=== PATIENT | male | born 1945 | race African-American/Black ===

== ENCOUNTER 2017-05-27 00:44 | Inpatient (IN) | payer MEDICARE, MEDICAID ==
[2017-05-27 03:34] VITALS: BMI 32.1
[2017-05-27] MEDS ORDERED: Dextrose 50% Abboject 50 ML SYRINGE SLOW IVP PRN (05:33)
[2017-05-27] MEDS ORDERED: Mag-Al 1200 mg/1200 mg/30 ML UDCUP PO PRN (05:33)
[2017-05-27] MEDS ORDERED: HYDROcodone/Acetaminophen 5/325 mg Tablet PO PRN ×2 (05:33)
[2017-05-27] MEDS ORDERED: hydrALAZINE 20 MG/ML VIAL SLOW IVP PRN (05:33)
[2017-05-27] MEDS ORDERED: Dextrose 5% in Water 1,000 ML IV PRN (05:33)
[2017-05-27] MEDS ORDERED: Acetaminophen 325 MG TAB PO PRN ×2 (05:33)
[2017-05-27] MEDS ORDERED: HumaLOG 300 UNITS/3 ML VIAL SC PRN ×2 (05:33)
[2017-05-27] MEDS ORDERED: Milk Of Magnesia 30 ML UDCUP PO PRN (05:33)
--- NOTE | 2017-05-27 06:02 | HP ---
PRIMARY CARE PHYSICIAN: The patient does not remember his primary care physician. CHIEF COMPLAINT: Blister on the left foot. HISTORY OF PRESENT ILLNESS: Mr. Jackson is a pleasant 71-year-old gentleman that has a history of di abetes mellitus as well as hypertension and elevated cholesterol. He was in his usual state of healt h until 2 nights ago, he says that he was taking a shower and noticed that he had a blister on his fo ot. He says there was no pain associated with it and he says that the following day, it seems like t he blister was getting larger and then he tried to put on his shoes and then the blister burst. Sinc e he is diabetic, he was concerned and came to the ER for evaluation. It was noted that he had a lar ge bullous lesion on the dorsum of the foot; however, it did not appear to have any purulent drainage or to be infected. He has been admitted for further evaluation and consultation with wound care. T he patient says that he denies any trauma to the foot and he denies any pain to that area and he says that his sensation in his foot is fairly good and he denies any burning of the foot. He also denies any fevers or chills and the drainage was just clear. REVIEW OF SYSTEMS: Constitutional: There have been no fevers, no chills, no night sweats, no weight loss. HEENT: No headaches, no dizziness, no visual changes, no sore throat, rhinorrhea, neck pain or adenopathy. Pulmonary: No hemoptysis, no cough, no wheezing. Cardiovascular: He denies any chest pain, no shortness of breath, no PND, no orthopnea. Gastrointestinal: No abdominal pain, no nausea, no vomiting, no change in bowels. Genitourinary: No urinary frequency, hematuria, no hesitancy. Neurologic: He has a history of seiz ures, but no recent seizures, no focal weakness. Skin and Integument: As the history of present ill ness. Endocrine: No polyuria, no polydipsia. No heat or cold intolerance. PAST MEDICAL HISTORY: Significant for diabetes mellitus type 2, hyperlipidemia, elevated cholesterol , hypertension, coronary artery disease, and seizure disorder. PAST SURGICAL HISTORY: He has had hernia repair and pelvic surgery. ALLERGIES: No known drug allergies. SOCIAL HISTORY: He is a nonsmoker. He occasionally drinks. He is single, has two children, a son a nd a daughter and lives with his daughter. CODE STATUS: FULL CODE. FAMILY HISTORY: Unknown. MEDICATIONS: Include Keppra 500 mg twice a day, potassium chloride 8 mEq daily, amlodipine 10 mg cici ly, carvedilol 3.125 mg twice a day, Lipitor 40 mg at bedtime, lisinopril 10 mg twice a day, Lasix 40 mg daily, hydrochlorothiazide 25 mg daily, aspirin 81 mg a day. PHYSICAL EXAMINATION: GENERAL: He is alert and oriented. He appears to be in no acute distress. VITAL SIGNS: Blood pressure was 161/73, heart rate 79, respiratory rate is 16, temperature is 98.4. HEENT: Pupils are equal, round, and reactive. Extraocular muscles are intact. Sclerae are anicteri c. Throat no erythema, no exudates. NECK: No adenopathy, no bruits. LUNGS: Clear to auscultation. There is no wheezing, no rales. CARDIOVASCULAR: He has a normal S1, S2. I do not appreciate an S3 or S4. No murmurs, clicks or rub s. ABDOMEN: Soft, it is nontender, nondistended. Positive for bowel sounds. No rebound, no guarding. EXTREMITIES: He has got some chronic venous stasis changes on both of his legs on the calf. He has got some mycotic nails. He has a bullous lesion on the dorsum of the left foot and it is also encomp assing part of the fifth and fourth toes. There is no erythema. There is no induration. There is n o odor. His pulses are palpable, but seems slightly diminished. He has got some callus formation on the toes as well as the foot as well. Neurological: The exam is nonfocal. SIGNIFICANT LABORATORY DATA AND X-RAY FINDINGS: White blood cell count was 6.1, hemoglobin 10.2, hem atocrit 33.8, platelet count was 283. Sodium 142, potassium 4.1, chloride is 106, CO2 was 25, BUN of 35, creatinine of 2.83, glucose is 106. He had an x-ray of the foot that just showed some degenerat brianne changes. ASSESSMENT AND PLAN: This is a pleasant 71-year-old gentleman that has a bullous lesion on the foot, unclear as to how this injury came about. He does admit that he has been doing quite a bit of walki ng and it is possible that his shoes are not fitting properly, which could put him at risk for this t ype of lesion. He says his sensation is fairly intact, therefore, burn is unlikely that this would h ave gone unnoticed and it is possible that it could be vascular; however, his pulses were palpable; h owever, they were diminished. It is unlikely that it represents a primary dermatological problem sin ce that time just one localized area on the foot. He will be evaluated by Wound Care. We will hold off on antibiotics at this time as the area does not appear to be infected. We will get an ultrasoun d of his arterial circulation to help assess his vascular status. He may require home health at the time of discharge to help with wound care. 1. Diabetes mellitus. We will need to determine what he takes for diabetes control and place him on a sliding scale insulin. 2. Hypertension. Again, we will restart his home medications and place him on p.r.n. medications as needed. 3. The patient will be placed on deep venous thrombosis and gastrointestinal prophylaxis. 4. Seizures. He has had no recent seizures. We will continue Keppra and monitor.
[2017-05-27] MEDS: Potassium Chloride 8 MEQ TAB PO SCH (10:26)
[2017-05-27] MEDS: Furosemide 40 MG TAB PO SCH (10:26)
[2017-05-27] MEDS: levETIRAcetam 500 MG TAB PO SCH ×2 (10:27→20:51)
[2017-05-27] MEDS: Hydrochlorothiazide 25 MG TAB PO SCH (10:27)
[2017-05-27] MEDS: Amlodipine 10 MG TAB PO SCH (10:27)
[2017-05-27] MEDS: Famotidine 20 MG TAB PO SCH ×2 (10:27→20:51)
[2017-05-27] MEDS: Aspirin 81 mg Enteric Coated Tablet PO SCH (10:27)
[2017-05-27] MEDS: Lisinopril 5 MG TAB PO SCH ×2 (10:27→20:50)
[2017-05-27] MEDS: Carvedilol 3.125 MG TAB PO SCH ×2 (10:27→20:51)
[2017-05-27] MEDS: Heparin 5,000 UNITS/ML VIAL SC SCH ×3 (10:28→20:51)
--- NOTE | 2017-05-27 15:23 | PDOC.PN ---
- Subjective Encounter Start Date: 05/27/17 Encounter Start Time: 15:00 Subjective: f/u for LLE bullous formation on the dorsum of the L foot. WCT evaluated -: with local dressing applied. Some burning pain when touched. No direct -: trauma, burn or prior similar event. - Objective Resuscitation Status: Resuscitation Status FULL:Full Resuscitation MAR Reviewed: Yes Vital Signs & Weight: Vital Signs (12 hours) Temp Pulse Resp BP BP Pulse Ox 05/27/17 10:27 66 05/27/17 08:06 161/78 H 05/27/17 08:00 98.5 F 59 L 18 154/83 H 99 05/27/17 04:00 98.6 F 79 18 130/68 100 Weight Admit Weight 217 lb 12.8 oz Weight 217 lb 12.8 oz I&O: 05/26/17 05/27/17 05/28/17 06:59 06:59 06:59 Intake Total 240 Balance 240 Additional Labs: Accuchecks 05/27/17 05/27/17 11:45 05:49 POC Glucose 92 96 Laboratory Tests 05/26/17 05/26/17 20:51 20:51 WBC 6.1 Hgb 10.2 L Hct 33.8 L Plt Count 283 BUN 35 H Creatinine 2.83 H Radiology Reviewed by me: Yes (Arterial sono -pending; L foot x-ray - no foreign body, bone destruction) Phys Exam - Physical Examination Constitutional: NAD HEENT: PERRLA, oral pharynx no lesions Neck: no JVD, supple Respiratory: no wheezing, clear to auscultation bilateral Cardiovascular: RRR Gastrointestinal: soft, non-tender, no distention, positive bowel sounds LLE with edema, L foot with 4.5cm bullous formation on dorsum, + 3-5th toe edema Musculoskeletal: pulses present, edema present Neurological: moves all 4 limbs Psychiatric: A&O x 3 Skin: normal turgor, cap refill <2 seconds Dx/Plan (1) Bullous dermatosis Code(s): L13.9 - BULLOUS DISORDER, UNSPECIFIED Status: Acute Comment: L foot involvement, start IV abx, local WCT (2) DM II (diabetes mellitus, type II), controlled Code(s): E11.9 - TYPE 2 DIABETES MELLITUS WITHOUT COMPLICATIONS Status: Chronic Comment: suspected, clarify home regimen, ISS (3) Peripheral neuropathy Code(s): G62.9 - POLYNEUROPATHY, UNSPECIFIED Status: Suspected Comment: Supportive, Local WCT (4) HTN (hypertension) Code(s): I10 - ESSENTIAL (PRIMARY) HYPERTENSION Status: Chronic Qualifiers: Hypertension type: essential hypertension Qualified Code(s): I10 - Essential (primary) hypertension Comment: Continue Amlodipine, Coreg and HCTZ (5) CKD (chronic kidney disease), stage IV Code(s): N18.4 - CHRONIC KIDNEY DISEASE, STAGE 4 (SEVERE) Status: Chronic Comment: Follow trend, avoid nephrotoxic meds and contrast media - Plan continue antibiotics, PT/OT, social director, out of bed/ambulate Stable overall -: Start Rocephin and Vancomycin when IV established -: WCT for local care -: Review arterial sono of LLE -: Resume home BP regimen * Am lab: BMP, CBC
[2017-05-27] MEDS: Atorvastatin Calcium 40 MG TAB PO SCH (20:50)
[2017-05-28 05:15] LABS: #Basophils 0.1 thou/uL (0.0-0.2); #Eosinphils 0.1 thou/uL (0.0-0.7); #Lymphocytes 1.5 thou/uL (1.20-3.40); #Monocytes 0.3 thou/uL (0.11-0.59); #Neutrophils 2.8 thou/uL (1.40-6.50); %Eosinophils 2.9 % (0.0-10.0); %Lymphocytes 31.2 % (21.0-51.0); %Monocytes 6.9 % (0.0-10.0); %Neutrophils 57.9 % (42.0-75.0); Mean Corpuscular HGB CONC 30.5 g/dL (32.0-36.0); Mean Corpuscular Hemoglobin 23.8 pg (27.0-31.0); Mean Corpuscular Volume 78.2 fl (80.0-94.0); Mean Platelet Volume 7.9 fL (7.4-10.4); Platelet Count 273 thou/uL (130-400); White Blood Cell (WBC) Count 4.9 thou/uL (4.8-10.8)
[2017-05-28 05:28] LABS: Anion Gap 11 mmol/L (10-20); BUN (Urea Nitrogen) 31 mg/dL (8.4-25.7); Calc. Creatinine Clearance 41 mL/min (70-130); Calcium 8.9 mg/dL (7.8-10.44); Carbon Dioxide 26 mmol/L (23-31); Chloride 105 mmol/L (98-107); Estimated GFR-MDRD 35; Glucose 84 mg/dL (83-110); Potassium 3.6 mmol/L (3.5-5.1); Sodium 138 mmol/L (136-145)
--- NOTE | 2017-05-28 07:19 | CON ---
DATE OF CONSULTATION: 05/27/2017 CONSULTING PHYSICIAN: Dr. Marion. REASON FOR CONSULTATION: Chronic kidney disease. REASON FOR ADMISSION: Left-foot blister. HISTORY OF PRESENT ILLNESS: This is a 71-year-old -[place] male with history of diabetes, hy pertension, hyperlipidemia, coronary artery disease, who came to the hospital with blister. Patient does have chronic kidney disease and family request him to evaluation. He does follow with Dr. Hall. No fever or chills. No chest pain reported to me. No shortness of breath. PAST MEDICAL HISTORY: Positive for type 2 diabetes, hypertension, hyperlipidemia, coronary artery di sease. PAST SURGICAL HISTORY: Hernia surgery and pelvic surgery. ALLERGIES: No known drug allergies. HOME MEDICATIONS: Potassium, lisinopril, hydrochlorothiazide, Lasix, carvedilol, Lipitor, . ALLERGIES: No known drug allergies. SOCIAL HISTORY: No smoking, alcohol, or illicit drug use. FAMILY HISTORY: No history of kidney disease. REVIEW OF SYSTEMS: The following complete review of systems was negative, unless otherwise mentioned in the HPI or below: Constitutional: Weight loss or gain, ability to conduct usual activities. Sk in: Rash, itching. Eyes: Double vision, pain. ENT/Mouth: Nose bleeding, neck stiffness, pain, te nderness. Cardiovascular: Palpitations, dyspnea on exertion, orthopnea. Respiratory: Shortness of breath, wheezing, cough, hemoptysis, fever, or night sweats. Gastrointestinal: Poor appetite, abdo yoselin pain, heartburn, nausea, vomiting, constipation, or diarrhea. Genitourinary: Urgency, frequen cy, dysuria, nocturia. Musculoskeletal: Pain, swelling. Neurologic/Psychiatric: Anxiety, depressi on. Allergy/Immunologic: Skin rash, bleeding tendency. PHYSICAL EXAMINATION: GENERAL: This is a well-built male, no apparent distress. VITAL SIGNS: Temperature 98.6, pulse 56, respiratory rate 20, blood pressure 125/69. HEENT: Atraumatic, normocephalic. Oral mucosa is moist. NECK: Supple, no masses. CARDIOVASCULAR: S1, S2. Rate and rhythm regular. No murmurs or gallops. RESPIRATORY: Clear. ABDOMEN: Soft. MUSCULOSKELETAL: 1+ edema. DERMATOLOGIC: No skin rashes. NEUROLOGIC: Alert and awake. PSYCHIATRIC: Mood and affect normal. LABORATORY DATA: Potassium 4.1, BUN is 35, creatinine is 2.9. ASSESSMENT AND PLAN: 1. Acute kidney injury on chronic kidney disease, stage 4. Renal function is stable, close to his b aseline. 2. Hypertension, stable. 3. Edema, controlled. 4. Anemia. We will monitor renal function and avoid nephrotoxins.
[2017-05-28] MEDS: Lisinopril 5 MG TAB PO SCH ×2 (08:14→21:04)
[2017-05-28] MEDS: Famotidine 20 MG TAB PO SCH ×2 (08:15→21:03)
[2017-05-28] MEDS: Furosemide 40 MG TAB PO SCH (08:15)
[2017-05-28] MEDS: Potassium Chloride 8 MEQ TAB PO SCH (08:15)
[2017-05-28] MEDS: Carvedilol 3.125 MG TAB PO SCH ×2 (08:15→21:03)
[2017-05-28] MEDS: Amlodipine 10 MG TAB PO SCH (08:15)
[2017-05-28] MEDS: Aspirin 81 mg Enteric Coated Tablet PO SCH (08:15)
[2017-05-28] MEDS: Hydrochlorothiazide 25 MG TAB PO SCH (08:16)
[2017-05-28] MEDS: Heparin 5,000 UNITS/ML VIAL SC SCH ×3 (08:16→21:04)
[2017-05-28] MEDS: levETIRAcetam 500 MG TAB PO SCH ×2 (08:16→21:04)
[2017-05-28] MEDS ORDERED: Prevnar 13-Val Conj/PF 0.5 ML SYRINGE IM ONE (09:00)
[2017-05-28] MEDS ORDERED: FLU VACC TS2017-18 (>65YR) 0.5 ML SYRINGE IM ONE (09:00)
--- NOTE | 2017-05-28 12:09 | PRG ---
DATE OF SERVICE: 05/28/2017 SUBJECTIVE: Patient was seen and examined at bedside and overnight events noted. Patient denies any shortness of breath or chest pain or palpitation. No history of nausea or vomiting or diarrhea or f ever or chills or cramps. OBJECTIVE: GENERAL: This is a well-built male in no apparent distress. VITAL SIGNS: Temperature 97.5, pulse 64, respiratory rate 18, blood pressure 104/60. HEENT: Atraumatic, normocephalic. Oral mucosa is moist. NECK: Supple. CARDIOVASCULAR: S1, S2 heard. Rate and rhythm regular. RESPIRATORY: Clear to auscultation. GASTROINTESTINAL: Abdomen is soft. MUSCULOSKELETAL: No tenderness. No edema. DERMATOLOGIC: No skin rash. NEUROLOGIC: Alert and awake and oriented x3. No focal neurologic deficits. Moving all the extremiti es. PSYCHIATRIC: Mood and affect normal. LABORATORY DATA: Potassium is 3.6, BUN is 31, creatinine is 2.2. ASSESSMENT AND PLAN: 1. Acute kidney injury on chronic kidney disease. Renal function is getting better. 2. Edema controlled. 3. Hypertension. 4. Anemia. Overall stable renal function. We will follow.
--- NOTE | 2017-05-28 12:12 | PDOC.PN ---
- Subjective Encounter Start Date: 05/28/17 Encounter Start Time: 12:00 Subjective: f/u for L foot bulla and edema and KRISTINA. Receiving local care per WCT. -: No IV established and no abx started. No c/o pain in L foot currently. - Objective Resuscitation Status: Resuscitation Status FULL:Full Resuscitation MAR Reviewed: Yes Vital Signs & Weight: Vital Signs (12 hours) Temp Pulse Resp BP BP Pulse Ox 05/28/17 08:14 64 133/75 05/28/17 08:00 97.5 F L 64 16 99 05/28/17 07:40 97.5 F L 66 16 104/60 99 Weight Admit Weight 217 lb 12.8 oz Weight 217 lb 12.8 oz I&O: 05/27/17 05/28/17 05/29/17 06:59 06:59 06:59 Intake Total 240 240 Balance 240 240 Result Diagrams: 05/28/17 04:54 05/28/17 04:54 Additional Labs: Accuchecks 05/28/17 05/28/17 05/27/17 11:21 06:11 20:12 POC Glucose 98 82 120 H 05/27/17 16:13 POC Glucose 125 H Laboratory Tests 05/26/17 05/26/17 20:51 20:51 WBC 6.1 Hgb 10.2 L Hct 33.8 L Plt Count 283 BUN 35 H Creatinine 2.83 H Phys Exam - Physical Examination Constitutional: NAD HEENT: PERRLA, oral pharynx no lesions Neck: no JVD, supple Respiratory: no wheezing, clear to auscultation bilateral Cardiovascular: RRR Gastrointestinal: soft, non-tender, no distention, positive bowel sounds L foot with dressing in place Musculoskeletal: pulses present, edema present Neurological: moves all 4 limbs Psychiatric: A&O x 3 Deviation from normal: dry skin on feet and lower legs Skin: normal turgor, cap refill <2 seconds Dx/Plan (1) Bullous dermatosis Code(s): L13.9 - BULLOUS DISORDER, UNSPECIFIED Status: Acute Comment: L foot involvement, start Augmentin 500mg BID, local WCT (2) DM II (diabetes mellitus, type II), controlled Code(s): E11.9 - TYPE 2 DIABETES MELLITUS WITHOUT COMPLICATIONS Status: Chronic Comment: suspected, clarify home regimen, ISS (3) Peripheral neuropathy Code(s): G62.9 - POLYNEUROPATHY, UNSPECIFIED Status: Suspected Comment: Supportive, Local WCT (4) HTN (hypertension) Code(s): I10 - ESSENTIAL (PRIMARY) HYPERTENSION Status: Chronic Qualifiers: Hypertension type: essential hypertension Qualified Code(s): I10 - Essential (primary) hypertension Comment: Continue Amlodipine, Coreg and HCTZ (5) CKD (chronic kidney disease), stage IV Code(s): N18.4 - CHRONIC KIDNEY DISEASE, STAGE 4 (SEVERE) Status: Chronic Comment: Follow trend, avoid nephrotoxic meds and contrast media - Plan PT/OT, social services designee, out of bed/ambulate Stable overall -: Start Augmentin 500mg po BID -: WCT for local care -: OOB/ambulate -: AM lab: BMP * Review arterial dopplers of LE's
[2017-05-28] MEDS ORDERED: Amoxicillin/Potassium Clav 500 MG TAB PO SCH (12:30)
[2017-05-28] MEDS: Amoxicillin/Potassium Clav 500 MG TAB PO SCH (21:02)
[2017-05-28] MEDS: Atorvastatin Calcium 40 MG TAB PO SCH (21:03)
[2017-05-29] MEDS: Lisinopril 5 MG TAB PO SCH ×2 (08:59→20:47)
[2017-05-29] MEDS: Aspirin 81 mg Enteric Coated Tablet PO SCH (09:00)
[2017-05-29] MEDS: Potassium Chloride 8 MEQ TAB PO SCH (09:00)
[2017-05-29] MEDS: Carvedilol 3.125 MG TAB PO SCH ×2 (09:00→20:47)
[2017-05-29] MEDS: Furosemide 40 MG TAB PO SCH (09:00)
[2017-05-29] MEDS: Amlodipine 10 MG TAB PO SCH (09:00)
[2017-05-29] MEDS: Famotidine 20 MG TAB PO SCH ×2 (09:00→20:45)
[2017-05-29] MEDS: Hydrochlorothiazide 25 MG TAB PO SCH (09:00)
[2017-05-29] MEDS: levETIRAcetam 500 MG TAB PO SCH ×2 (09:00→20:47)
[2017-05-29] MEDS: Heparin 5,000 UNITS/ML VIAL SC SCH ×3 (09:00→20:48)
[2017-05-29] MEDS: Amoxicillin/Potassium Clav 500 MG TAB PO SCH ×2 (09:01→20:45)
--- NOTE | 2017-05-29 14:41 | PDOC.PN ---
- Subjective Encounter Start Date: 05/29/17 Encounter Start Time: 14:30 Subjective: f/u L foot bullous formation and cellulitis tx with Augmentin and local -: wound care. - Objective Resuscitation Status: Resuscitation Status FULL:Full Resuscitation MAR Reviewed: Yes Vital Signs & Weight: Vital Signs (12 hours) Temp Pulse Resp BP Pulse Ox 05/29/17 08:00 98.4 F 60 16 99 05/29/17 07:18 98.4 F 60 16 136/65 99 05/29/17 05:00 98.2 F 60 16 130/83 99 Weight Admit Weight 217 lb 12.8 oz Weight 217 lb 12.8 oz I&O: 05/28/17 05/29/17 05/30/17 06:59 06:59 06:59 Intake Total 240 200 Output Total 250 Balance 240 -50 Result Diagrams: 05/28/17 04:54 05/28/17 04:54 Additional Labs: Accuchecks 05/29/17 05/29/17 05/28/17 11:11 06:03 21:01 POC Glucose 91 86 114 H 05/28/17 16:10 POC Glucose 98 Phys Exam - Physical Examination Constitutional: NAD HEENT: PERRLA, oral pharynx no lesions Neck: no JVD, supple Respiratory: no wheezing, clear to auscultation bilateral Cardiovascular: RRR Gastrointestinal: soft, non-tender, no distention, positive bowel sounds L foot edema with dressing in place Musculoskeletal: pulses present, edema present Neurological: normal sensation, moves all 4 limbs Psychiatric: A&O x 3 Skin: normal turgor, cap refill <2 seconds Dx/Plan (1) Bullous dermatosis Code(s): L13.9 - BULLOUS DISORDER, UNSPECIFIED Status: Acute Comment: L foot involvement, start Augmentin 500mg BID, local WCT (2) DM II (diabetes mellitus, type II), controlled Code(s): E11.9 - TYPE 2 DIABETES MELLITUS WITHOUT COMPLICATIONS Status: Chronic Comment: suspected, clarify home regimen, ISS (3) Peripheral neuropathy Code(s): G62.9 - POLYNEUROPATHY, UNSPECIFIED Status: Suspected Comment: Supportive, Local WCT (4) HTN (hypertension) Code(s): I10 - ESSENTIAL (PRIMARY) HYPERTENSION Status: Chronic Qualifiers: Hypertension type: essential hypertension Qualified Code(s): I10 - Essential (primary) hypertension Comment: Continue Amlodipine, Coreg and HCTZ (5) CKD (chronic kidney disease), stage IV Code(s): N18.4 - CHRONIC KIDNEY DISEASE, STAGE 4 (SEVERE) Status: Chronic Comment: Follow trend, avoid nephrotoxic meds and contrast media - Plan Continue Augmentin 500mg BID -: WCT for local care -: CM for HH options -: Update Td immunization prior to d/c -: AM lab: BMP * Likely home 05/30/17
[2017-05-29] MEDS: Atorvastatin Calcium 40 MG TAB PO SCH (20:45)
--- NOTE | 2017-05-29 22:38 | PRG ---
DATE OF SERVICE: 05/29/2017 SUBJECTIVE: Patient was seen and examined at bedside and overnight events noted. Patient denies any shortness of breath or chest pain or palpitation. No history of nausea or vomiting or diarrhea or fever or chills or cramps. OBJECTIVE: GENERAL: This is an elderly male, in no apparent distress. VITAL SIGNS: Temperature 98.4, pulse 60, respiratory rate , blood pressure 136/65. HEENT: Atraumatic, normocephalic. Oral mucosa is moist NECK: Supple. CARDIOVASCULAR: S1 and S2 heard. Rate and rhythm regular. RESPIRATORY: Clear to auscultation. GASTROINTESTINAL: Abdomen is soft. MUSCULOSKELETAL: No tenderness. No edema. DERMATOLOGIC: No skin rash. NEUROLOGIC: Alert and awake and oriented X3, No focal neurologic deficits. Moving all the extremities. PSYCHIATRIC: Mood and affect normal. LABORATORY DATA: No labs done today. ASSESSMENT AND PLAN: 1. Acute kidney injury on chronic kidney disease stage 4, check labs in the morning. 2. Edema. 3. Hypertension. 4. Anemia. Monitor hemoglobin. 5. Check labs in the morning. We will follow. RACHIDD
[2017-05-30 05:34] LABS: Anion Gap 12 mmol/L (10-20); BUN (Urea Nitrogen) 29 mg/dL (8.4-25.7); Calc. Creatinine Clearance 36 mL/min (70-130); Calcium 9.5 mg/dL (7.8-10.44); Carbon Dioxide 26 mmol/L (23-31); Chloride 102 mmol/L (98-107); Estimated GFR-MDRD 30; Glucose 91 mg/dL (83-110); Sodium 136 mmol/L (136-145)
[2017-05-30 08:28] VITALS: BP 96/63; TEMP 97.6
--- NOTE | 2017-05-30 08:47 | PRG ---
DATE OF SERVICE: 05/30/2017 SUBJECTIVE: This 71-year-old gentleman being seen for acute kidney injury. The patient denies any n ausea, vomiting, or chest pain. PHYSICAL EXAMINATION: GENERAL: Patient is awake, alert. VITAL SIGNS: Afebrile, pulse 78, breathing 16, blood pressure 96/63. HEAD/NECK: Normocephalic. Atraumatic. EYES: EOMI. No deformity. EARS: Clear. No ulcers. NOSE: Intact. No lesions. MOUTH: Clear. No discharge. THROAT: Clear. No exudate. LUNGS: Clear. No crackles. CARDIAC: S1, S2. No rub. ABDOMEN: Benign. BS+. GENITALIA/RECTUM: Solis absent. BACK/EXTREMITIES: Edema 0+ Ulcer- NEUROLOGICAL: Alert and motor intact. SKIN: Rash- Bruise- LYMPHATICS: Edema- Ulcer- LABORATORY DATA: Show hemoglobin 10 and creatinine 2.5. ASSESSMENT AND PLAN: 1. Acute kidney injury with chronic kidney disease, mild increase in creatinine. No indication for dialysis. 2. Hypertension, stable. 3. Medications based on glomerular filtration rate are appropriate. No indication for dialysis at t his time.
[2017-05-30] MEDS: Hydrochlorothiazide 25 MG TAB PO SCH (09:35)
[2017-05-30] MEDS: Lisinopril 5 MG TAB PO SCH (09:35)
[2017-05-30] MEDS: Carvedilol 3.125 MG TAB PO SCH (09:35)
[2017-05-30] MEDS: Aspirin 81 mg Enteric Coated Tablet PO SCH (09:35)
[2017-05-30] MEDS: Famotidine 20 MG TAB PO SCH (09:35)
[2017-05-30] MEDS: Amlodipine 10 MG TAB PO SCH (09:35)
[2017-05-30] MEDS: Amoxicillin/Potassium Clav 500 MG TAB PO SCH (09:36)
[2017-05-30] MEDS: Heparin 5,000 UNITS/ML VIAL SC SCH ×2 (09:36→14:54)
[2017-05-30] MEDS: levETIRAcetam 500 MG TAB PO SCH (09:36)
[2017-05-30] MEDS: Furosemide 40 MG TAB PO SCH (09:36)
[2017-05-30] MEDS: Potassium Chloride 8 MEQ TAB PO SCH (09:37)
--- NOTE | 2017-05-30 13:05 | DIS ---
DATE OF ADMISSION: 05/27/2017 DATE OF DISCHARGE: 05/30/2017 DISCHARGE DIAGNOSES: 1. Left foot bullous dermatosis/cellulitis. 2. Diabetes mellitus type 2, controlled. 3. Peripheral neuropathy secondary to diabetes mellitus. 4. Hypertension, stable. 5. Chronic kidney disease stage 4. 6. Seizure disorder, chronic and stable. CONSULTATIONS: Dr. Aquino and Dr. Hall with Nephrology Service. PERTINENT LABORATORY DATA AND X-RAY FINDINGS: Creatinine ranged between 2.39-2.83 with estimated GFR ranging between 30-35. CBC showed white blood cell count of 4.9, hemoglobin 10, hematocrit 33, MCV 78, platelet count 273. Three views of the left foot dated 05/26/2017 showed degenerative changes wi thout fracture or dislocation. HOSPITAL COURSE: Patient was admitted to the medical floor after initially presenting with bullous f ormation of the left foot of unclear etiology. The patient underwent general evaluation by the Wound Care Service with debriefing of the bullous formation and local wound care and dressing changes. Th e patient was placed on prophylactic antibiotic therapy with Augmentin and tolerated the therapy with out difficulty. The patient received local wound care throughout the hospital course as well as eval uation by the Physical Therapy Service for ambulatory status. The patient was noted ambulatory with Physical Therapy Service. By the physical therapy service ambulating up to 300 feet with a rolling w alker. Current recommendations are to continue ambulatory status after returning home. The patient was also evaluated by the Nephrology Service after initial creatinine noted over 2 and estimated GFR in the 30 range. No specific recommendations for intervention with modification to current medicatio n dosing based on GFR. The patient remained clinically stable and ready for discharge on 05/30/2017. DISCHARGE MEDICATIONS: 1. Augmentin 500 mg 1 tab p.o. b.i.d. x10 days. 2. Norvasc 10 mg 1 tab p.o. daily. 3. Enteric coated aspirin 81 mg 1 tab p.o. daily. 4. Lipitor 40 mg p.o. at bedtime. 5. Carvedilol 3.125 mg p.o. b.i.d. 6. Lasix 40 mg 1 tab p.o. daily. 7. Hydrochlorothiazide 25 mg 1 tab p.o. daily. 8. Keppra 500 mg p.o. b.i.d. 9. Lisinopril 10 mg p.o. b.i.d. 10. Potassium chloride 8 mEq p.o. daily. FOLLOWUP: The patient will follow up with his primary care provider, Dr. Merlyn Lombardi within 7 days of discharge. CONDITION ON DISCHARGE: Stable. ACTIVITY: Ad vadim. Rolling walker or cane for ambulation. DIET: ADA and heart healthy. SPECIAL INSTRUCTIONS: Home health services for local wound care on discharge. CODE STATUS: FULL. DISPOSITION: Home with home health services on 05/30/2017.
--- NOTE | 2017-05-31 22:12 | ULT ---
LOWER EXTREMITY ARTERIAL EVALUATION USING DOPPLER WAVEFORM ANALYSIS AND SEGMENTAL LIMB PRESSURES: Examination of the right leg revealed satisfactory waveform at the femoral level, but below this, it was slightly decreased. Ankle-arm index could not be calculated due to noncompressible tibioperoneal vessels. Toe-brachial index was somewhat diminished at 0.53. Left lower extremity demonstrated fairly well preserved femoral waveforms with mildly diminished wave forms distally with an ankle arm index of 0.98. Toe-brachial index on the left; however, was decreas ed 0.34. 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
== END 2017-05-30 17:19 | disposition home health service (06) | DRG 596 ==
LOC: ERS 00:44 → T4-A 01:20
PROVIDERS: ADMIT Internal Medicine; ATTEND Internal Medicine
DX: L13.9 Bullous disorder, unspecified (principal); E11.22 Type 2 diabetes mellitus with diabetic chronic kidney disease; E11.42 Type 2 diabetes mellitus with diabetic polyneuropathy; N18.4 Chronic kidney disease, stage 4 (severe); N17.9 Acute kidney failure, unspecified; L03.116 Cellulitis of left lower limb; B35.1 Tinea unguium; G40.909 Epilepsy, unspecified, not intractable, without status epilepticus; D64.9 Anemia, unspecified; I12.9 Hypertensive chronic kidney disease with stage 1 through stage 4 chronic kidney disease, or unspecified chronic kidney disease; I87.8 Other specified disorders of veins
CPT/HCPCS: 36415; 36416; 80048; 85025; 90471; 90670; 90682; 93922; 99285; G0008; G0009; G8978-GP-CI; G8979-GP-CI; G8980-GP-CI; G8987-GO-CI; G8988-GO-CI; G8989-GO-CI; J1644; Q2036